=== PATIENT | female | born 1995 | race Two or more races ===

== ENCOUNTER 2022-08-10 17:46 | Emergency (ER) | payer OTHER ==
[~2022-08-10] VITALS: Ht 167.6 cm; Wt 63.5 kg
[2022-08-10] MEDS ORDERED: NORFLEX100MG PO (19:20)
[2022-08-10] MEDS ORDERED: DICLOFENAC SODI75 MG PO (19:20)
== END 2022-08-10 20:02 | disposition home or self-care (01) ==
LOC: ER 17:46
DX: S13.4XXA Sprain of ligaments of cervical spine, initial encounter (principal); V49.9XXA Car occupant (driver) (passenger) injured in unspecified traffic accident, initial encounter; Y93.9 Activity, unspecified; Y92.413 State road as the place of occurrence of the external cause; Y99.9 Unspecified external cause status